=== PATIENT | female | born 1970 | race Caucasian/White ===

== ENCOUNTER 2018-03-20 10:31 | Emergency (ER) | payer OTHER, SELFPAY ==
[2018-03-20] MEDS ORDERED: BENZONATATE 100 MG CAP PO ONE (12:08)
--- NOTE | 2018-03-20 12:44 | RAD REPORT ---
EXAM DESCRIPTION: Agnes Young (2 Views)03/20/2018 12:25 pm CLINICAL HISTORY: Cough COMPARISON: None FINDINGS: The interstitial pattern within the left lung bases mildly prominent. Right lung appears clear. The heart is normal size IMPRESSION: Mildly prominent interstitial pattern within the left base may indicate an atypical pne umonia
--- NOTE | 2018-03-20 12:57 | EDPHYS ---
Physician Documentation [facility] Name: Annika Mcgill Age: 47 yrs Sex: Female : 1970 Arrival Date: 03/20/2018 Time: 10:32 Bed 12 Private MD: Unknown, Unknown ED Physician Shaan Shell HPI: 03/20 11:55 This 47 yrs old Female presents to ER via Ambulatory with complaints of cp Cough, Headache, Ear Pain. 11:55 The patient or guardian reports cough, that is intermittent, with productive sputum. cp Onset: The symptoms/episode began/occurred 2 month(s) ago, and became worse 3 day(s) ago. Associated signs and symptoms: Pertinent positives: earache, sore throat, headache, Pertinent negatives: chest pain, fever, vomiting. Historical: - Allergies: 10:41 No Known Allergies; sv - PMHx: 10:41 None; sv - PSHx: 10:41 cleft palate; ; Ear Tubes; sv - Immunization history:: Flu vaccine is not up to date. - Social history:: Smoking status: Patient/guardian denies using tobacco. - Ebola Screening: : No symptoms or risks identified at this time. ROS: 12:05 Constitutional: Negative for body aches, chills, fever, poor PO intake. cp 12:05 Eyes: Negative for injury, pain, redness, and discharge. cp 12:05 ENT: Positive for ear pain, sore throat, Negative for drainage from ear(s), difficulty swallowing, difficulty handling secretions. 12:05 Cardiovascular: Negative for chest pain, palpitations. 12:05 Respiratory: Positive for cough, Negative for shortness of breath, wheezing. 12:05 Abdomen/GI: Negative for abdominal pain, nausea, vomiting, and diarrhea. 12:05 Back: Negative for pain at rest, pain with movement, radiated pain. 12:05 : Negative for urinary symptoms. 12:05 Skin: Negative for cellulitis, rash. 12:05 Neuro: Positive for headache, Negative for altered mental status, weakness. 12:05 All other systems are negative. Exam: 12:10 Constitutional: The patient appears in no acute distress, alert, awake, cp non-diaphoretic, non-toxic, well developed, well nourished. 12:10 Head/Face: Normocephalic, atraumatic. cp 12:10 Eyes: Periorbital structures: appear normal, Conjunctiva: normal, no exudate, no injection, Lids and lashes: appear normal, bilaterally. 12:10 ENT: External ear(s): are unremarkable, Ear canal(s): are normal, clear, TM's: bulging, is not appreciated, bilaterally, dullness, bilaterally, erythema, is not appreciated, bilaterally, Nose: is normal, Mouth: Lips: moist, Oral mucosa: pink and intact, moist, Tongue: is normal, Posterior pharynx: Airway: no evidence of obstruction, patent, Tonsils: are normal in appearance, Uvula: midline, swelling, is not appreciated, erythema, that is mild, Dental exam: dental caries, that is moderate, diffusely, Voice: is normal. 12:10 Neck: ROM/movement: is normal, is supple, without pain, no range of motions limitations, no meningismus, no nuchal rigidity. 12:10 Chest/axilla: Inspection: normal, Palpation: is normal, no crepitus, no tenderness. 12:10 Cardiovascular: Rate: normal, Rhythm: regular, Heart sounds: murmur, not appreciated, Edema: is not appreciated, JVD: is not appreciated. 12:10 Respiratory: the patient does not display signs of respiratory distress, Respirations: normal, no use of accessory muscles, no retractions, no splinting, no tachypnea, labored breathing, is not present, Breath sounds: bronchial sounds, that are mild, are heard diffusely, decreased breath sounds, are not appreciated, stridor, is not appreciated, + upper airway congestion. wheezing: is not appreciated. 12:10 Abdomen/GI: Exam negative for discomfort, distension, guarding, Inspection: abdomen appears normal. 12:10 Skin: cellulitis, is not appreciated, no rash present. 12:10 Neuro: Orientation: to person, place \T\ time. Mentation: is normal, Cerebellar function: is grossly normal, Motor: moves all fours, strength is normal, Sensation: is normal. Vital Signs: 10:41 BP 108 / 67; Pulse 74; Resp 18; Temp 98.9; Pulse Ox 97% ; Weight 81.65 kg; Height 5 ft. sv 4 in. (162.56 cm); Pain 5/10; 10:41 Body Mass Index 30.90 (81.65 kg, 162.56 cm) sv MDM: 11:47 Patient medically screened. cp 12:00 Differential Diagnosis: Bronchitis Influenza Sinusitis Otitis Media Pneumonia. cp 12:55 Data reviewed: vital signs, nurses notes, lab test result(s), radiologic studies, plain cp films. 12:55 Test interpretation: by ED physician or midlevel provider: plain radiologic studies. cp Counseling: I had a detailed discussion with the patient and/or guardian regarding: the historical points, exam findings, and any diagnostic results supporting the discharge/admit diagnosis, lab results, radiology results, the need for outpatient follow up, a family practitioner, to return to the emergency department if symptoms worsen or persist or if there are any questions or concerns that arise at home. 03/20 11:52 Order name: Strep; Complete Time: 12:56 cp 03/20 11:52 Order name: Influenza Screen (a \T\ B); Complete Time: 12:56 cp 03/20 11:52 Order name: XRAY Chest Pa And Lat (2 Views); Complete Time: 12:56 cp 03/20 12:56 Interpretation: Report reviewed. cp 03/20 12:16 Order name: Throat Culture EDMS Administered Medications: 12:02 Drug: Tessalon Perle 200 mg Route: PO; sv 12:48 Follow up: Response: No adverse reaction sv Disposition: 03/20/18 12:57 Discharged to Home. Impression: Pneumonia due to other specified bacteria. - Condition is Stable. - Discharge Instructions: Community-Acquired Pneumonia, Adult. - Prescriptions for Tessalon Perles 100 mg Oral Capsule - take 1 capsule by ORAL route every 8 hours As needed; 30 capsule. Zithromax Z- Arturo 250 mg Oral Tablet - take 1 tablet by ORAL route as directed for 5 days Day 1 - take two (2) tablets one time. Day 2, 3, 4 , 5 take one (1) tablet once daily.; 6 tablet. Albuterol Sulfate 90 mcg/actuation - inhale 1-2 puff by INHALATION route every 4-6 hours; 1 Inhaler. - Medication Reconciliation Form, Thank You Letter, Antibiotic Education, Prescription Opioid Use form. - Follow up: Private Physician; When: 2 - 3 days; Reason: Recheck today's complaints. - Problem is new. - Symptoms have improved. Addendum: 03/23/2018 07:47 Co-signature as Attending Physician, Shaan Shell MD I agree with the assessment and [facility] plan of care. Signatures: Dispatcher [employer] Genesis Fitzgerald, RN RN Shaan Malcolm MD MD [facility] Eric Goldberg PA PA cp Sharon Leahy RN RN hb Corrections: (The following items were deleted from the chart) 03/20 13:11 12:57 03/20/2018 12:57 Discharged to Home. Impression: Pneumonia due to other specified hb bacteria. Condition is Stable. Forms are Medication Reconciliation Form, Thank You Letter, Antibiotic Education, Prescription Opioid Use. Follow up: Private Physician; When: 2 - 3 days; Reason: Recheck today's complaints. Problem is new. Symptoms have improved. cp
--- NOTE | 2018-03-20 12:57 | ER ---
Nurse's Notes [facility] Name: Annika Mcgill Age: 47 yrs Sex: Female : 1970 Arrival Date: 03/20/2018 Time: 10:32 Bed 12 Private MD: Unknown, Unknown Diagnosis: Pneumonia due to other specified bacteria Presentation: 03/20 10:40 Presenting complaint: Patient states: cough, headache, eye pain, right ear pain x 2 sv months. Transition of care: patient was not received from another setting of care. Onset of symptoms was February 2018. Care prior to arrival: None. 10:40 Method Of Arrival: Ambulatory sv 10:40 Acuity: JESSIKA 4 sv 11:00 Initial Sepsis Screen: Does the patient meet any 2 criteria? No. Patient's initial hb sepsis screen is negative. Does the patient have a suspected source of infection? No. Patient's initial sepsis screen is negative. 11:00 Risk Assessment: Do you want to hurt yourself or someone else? Patient reports no hb desire to harm self or others. Triage Assessment: 10:42 Headache History: The patient has had previous headaches and this one is similar to sv previous episodes. General: Appears in no apparent distress. uncomfortable, Behavior is calm, cooperative, appropriate for age. Pain: Complains of pain in face, right ear, left ear, right eye and left eye Pain currently is 5 out of 10 on a pain scale. Neuro: Level of Consciousness is awake, alert, obeys commands, Oriented to person, place, time, situation, Gait is steady. Respiratory: Respiratory effort is even, unlabored, Respiratory pattern is regular, symmetrical. Historical: - Allergies: 10:41 No Known Allergies; sv - PMHx: 10:41 None; sv - PSHx: 10:41 cleft palate; ; Ear Tubes; sv - Immunization history:: Flu vaccine is not up to date. - Social history:: Smoking status: Patient/guardian denies using tobacco. - Ebola Screening: : No symptoms or risks identified at this time. Screenin:51 Abuse screen: Denies threats or abuse. Denies injuries from another. Nutritional sv screening: No deficits noted. Tuberculosis screening: No symptoms or risk factors identified. Fall Risk None identified. Assessment: 11:51 Reassessment: Patient appears in no apparent distress at this time. No changes from sv previously documented assessment. Patient and/or family updated on plan of care and expected duration. Pain level reassessed. Patient is alert, oriented x 3, equal unlabored respirations, skin warm/dry/pink. See triage assessment. Vital Signs: 10:41 BP 108 / 67; Pulse 74; Resp 18; Temp 98.9; Pulse Ox 97% ; Weight 81.65 kg; Height 5 ft. sv 4 in. (162.56 cm); Pain 5/10; 10:41 Body Mass Index 30.90 (81.65 kg, 162.56 cm) sv ED Course: 10:32 Patient arrived in ED. ag5 10:33 Unknown, Unknown is Private Physician. ag5 10:41 Triage completed. sv 10:43 Arm band placed on Patient placed in waiting room, Patient notified of wait time. sv 11:47 Eric Goldberg PA is PHCP. cp 11:47 Shaan Shell MD is Attending Physician. cp 11:51 Patient has correct armband on for positive identification. Adult w/ patient. sv 12:21 X-ray completed. Portable x-ray completed in exam room. Patient tolerated procedure mh1 well. 12:21 XRAY Chest Pa And Lat (2 Views) In Process Unspecified. EDMS 13:10 No provider procedures requiring assistance completed. Patient did not have IV access hb during this emergency room visit. Administered Medications: 12:02 Drug: Tessalon Perle 200 mg Route: PO; sv 12:48 Follow up: Response: No adverse reaction sv Outcome: 12:57 Discharge ordered by MD. cp 13:10 Discharged to home ambulatory, with significant other. hb 13:10 Condition: stable 13:10 Discharge instructions given to patient, Instructed on discharge instructions, follow up and referral plans. medication usage, Demonstrated understanding of instructions, follow-up care, medications, Prescriptions given X 3. 13:11 Patient left the ED. hb Signatures: Dispatcher [facility] HospitalGenesis Pineda RN RN Evi Velázquez mh1 Eric Goldberg PA PA Sharon Fernandes RN RN hb Gaskin, Ajare ag5 Corrections: (The following items were deleted from the chart) 10:43 10:41 Pulse 74bpm; Resp 18bpm; Pulse Ox 97%; Temp 98.9F; 81.65 kg; Height 5 ft. 4 in.; sv BMI: 30.9; Pain 5/10; sv
== END 2018-03-20 13:11 | disposition home or self-care (01) ==
LOC: ER 10:31
DX: J15.8 Pneumonia due to other specified bacteria (principal)
CPT/HCPCS: 71046; 87070; 87081; 87804; 99283